=== PATIENT | male | born 1940 | race Caucasian/White ===

== ENCOUNTER → 2024-01-09 09:12 | Outpatient (REF) | payer MEDICARE, OTHER, SELFPAY | LOC: REG 09:12 | PROVIDERS: ATTENDING PHYSICIAN Internal Medicine Gastroenterology; FAMILY PHYSICIAN Family Medicine | DX: R19.7 Diarrhea, unspecified (principal) | CPT/HCPCS: 87328; 87329 ==

== ENCOUNTER → 2024-07-16 08:10 | Outpatient (REF) | payer MEDICARE, OTHER, SELFPAY ==
[2024-07-16 09:57] LABS: HDL Cholesterol 47 mg/dl; LDL Cholesterol, Calculated 63 mg/dl; Total Cholesterol 131 mg/dl (50-199); Triglyceride 107 mg/dl (10-149); Very Low Density Lipoprotein 21 mg/dl (0-30)
== END ==
LOC: REG 08:10
PROVIDERS: ATTENDING PHYSICIAN Internal Medicine; FAMILY PHYSICIAN Family Medicine
DX: I25.10 Atherosclerotic heart disease of native coronary artery without angina pectoris (principal); E78.2 Mixed hyperlipidemia
CPT/HCPCS: 36415; 80061

== ENCOUNTER → 2024-12-03 10:14 | Outpatient (REF) | payer MEDICARE, OTHER, SELFPAY ==
[2024-12-03 12:57] LABS: PSA, Total - Diagnostic 1.65 ng/ml (0.0-4.0)
== END ==
LOC: REG 10:14
PROVIDERS: ATTENDING PHYSICIAN Specialist; FAMILY PHYSICIAN Family Medicine
DX: R97.20 Elevated prostate specific antigen [PSA] (principal)
CPT/HCPCS: 36415; 84153

== ENCOUNTER → 2025-03-30 10:54 | Outpatient (REF) | payer MEDICARE, OTHER, SELFPAY ==
[2025-03-30 17:15] LABS: PSA, Total - Diagnostic 2.10 ng/ml (0.0-4.0)
== END ==
LOC: REG 10:54
PROVIDERS: ATTENDING PHYSICIAN Specialist; FAMILY PHYSICIAN Family Medicine
DX: R97.20 Elevated prostate specific antigen [PSA] (principal)
CPT/HCPCS: 36415; 84153